=== PATIENT | male | born 1965 | race Caucasian/White ===

== ENCOUNTER 2020-03-18 08:33 | Emergency (ER) | payer OTHER, BC ==
[2020-03-18] MEDS ORDERED: Ibuprofen 600 MG Tab PO ONE (09:02)
--- NOTE | 2020-03-18 09:37 | CR ---
PROCEDURE INFORMATION: Exam: XR Right Tibia and Fibula Exam date and time: 03/18/2020 9:12 AM Age: 54 years old Clinical indication: Injury or trauma; Work related; Initial encounter; Laceration; Lower leg; Right; Without foreign body; Additional info: Tractor part feel on distal tib fib TECHNIQUE: Imaging protocol: XR Right tibia and fibula. Views: 2 views. COMPARISON: No relevant prior studies available. FINDINGS: Bones/joints: Normal. Soft tissues: Normal. No soft tissue foreign body seen. IMPRESSION: No acute findings. Normal right tibia and fibula.
--- NOTE | 2020-03-18 09:51 | EDM.PDOC ---
ED HPI GENERAL MEDICAL PROBLEM - General Chief Complaint: Lower Extremity Injury/Pain Stated Complaint: [id number] SOMETHING FELL ON HIM AT WORK (FEDRAL) Time Seen by Provider: 03/18/20 09:00 Source of Information: Reports: Patient History Limitations: Reports: No Limitations - History of Present Illness INITIAL COMMENTS - FREE TEXT/NARRATIVE: Patient comes emergency department today from work with concerns of an injury to his left lower extremity. This patient was at work just prior to arrival when a piece of 500 pound tractor implement fell on his distal left tib-fib region. He complains of pain to the abrasion area just above the joint of the left ankle. Denies any pain in his ankle or his foot. No pain in his knee. No other injury. No COVID symptoms no COVID exposure. 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: Reports: Acetaminophen Right Leg Pain Score (Numeric/FACES): 10 - Related Data Allergies Allergy/AdvReac Type Severity Reaction Status Date / Time ketoprofen Allergy Nausea Verified 03/18/20 08:49 naproxen [From Aleve] Allergy Nausea and Verified 03/18/20 08:49 Vomiting Home Meds: Home Meds Ibuprofen [Motrin] 200 mg PO Q6H PRN 08/16/13 [History] Lisinopril/Hydrochlorothiazide [Lisinopril-Hctz 20-12.5 mg Tab] 1 each PO DAILY 08/16/13 [History] Multivitamin [Multi Vitamin Daily] 1 each PO DAILY 08/16/13 [History] Acetaminophen [Acetaminophen Extra Strength] 500 mg PO Q8HR PRN 01/19/18 [History] Cholecalciferol (Vitamin D3) [Vitamin D3] 5,000 units PO DAILY 01/19/18 [History] atorvaSTATin [Lipitor] 40 mg PO DAILY 01/19/18 [History] Omeprazole 20 mg PO ACBREAKFAST 03/18/20 [History] Past Medical History HEENT History: Reports: Impaired Vision Cardiovascular History: Reports: Hypertension Gastrointestinal History: Reports: GERD - Infectious Disease History Infectious Disease History: Reports: Chicken Pox, Mumps Social & Family History - Tobacco Use Smoking Status *Q: Current Some Day Smoker Years of Tobacco use: 20 Packs/Tins Daily: 0.5 - Caffeine Use Caffeine Use: Reports: None - Recreational Drug Use Recreational Drug Use: No Review of Systems - Review of Systems Review Of Systems: Comprehensive ROS is negative, except as noted in HPI. ED EXAM, GENERAL - Physical Exam Exam: See Below Exam Limited By: No Limitations General Appearance: Alert, WD/WN, No Apparent Distress Respiratory/Chest: No Respiratory Distress Cardiovascular: Normal Peripheral Pulses Peripheral Pulses: 2+: Radial (L), Radial (R), Posterior Tibial (L), Posterior Tibial (R), Dorsalis Pedis (L), Dorsalis Pedis (R) GI/Abdominal: Normal Bowel Sounds, Soft, Non-Tender Back Exam: Normal Inspection, Full Range of Motion Extremities: Normal Range of Motion, Normal Capillary Refill. No: Normal Inspection (Examination isolated to the right lower extremity. The right knee is unremarkable. There is no crepitus with flexion extension. No laxity within the joint. No pain with varus and valgus stress. No knee effusion. On the very distal anterior aspect of the tibia there is about a [place] size abrasion with a small skin tear. Small amount of bruising. There is some tenderness in this area. There is no overt bony deformity. The ankle is unremarkable as well. He has a negative talar tilt. No tenderness on the medial or lateral malleolus. He has full range of motion. And the foot is unremarkable and nontraumatic.) Course - Vital Signs Last Recorded V/S: Last Vital Signs Temp 98 F 03/18/20 08:44 Pulse 97 03/18/20 08:44 Resp 18 03/18/20 08:44 BP 149/97 H 03/18/20 08:44 Pulse Ox 97 03/18/20 08:44 - Orders/Labs/Meds Meds: Medications Discontinued Medications Generic Name Dose Route Start Last Admin Trade Name Amanda PRN Reason Stop Dose Admin Bacitracin 1 dose 03/18/20 09:52 03/18/20 09:57 Bacitracin Oint 1 Gm TOP 03/18/20 09:53 1 dose ONETIME ONE Administration Ibuprofen 600 mg 03/18/20 09:02 03/18/20 09:07 Motrin PO 03/18/20 09:03 600 mg ONETIME ONE Administration - Radiology Interpretation Free Text/Narrative:: xray tib fib negative for acute fracture per radiology. - Re-Assessments/Exams Free Text/Narrative Re-Assessment/Exam: 03/18/20 10:58 Negative xray. Wound was cleansed and dressed. Departure - Departure Time of Disposition: 09:45 Disposition: Home, Self-Care 01 Clinical Impression: Injury of tibia Qualifiers: Encounter type: initial encounter Laterality: right Qualified Code(s): S89.91XA - Unspecified injury of right lower leg, initial encounter Abrasion, lower leg, anterior Qualifiers: Encounter type: initial encounter Laterality: right Qualified Code(s): S80.811A - Abrasion, right lower leg, initial encounter - Discharge Information Instructions: Abrasion, [id number] Forms: ED Department Discharge Additional Instructions: Tylenol and or Ibuprofen as needed for pain. Cleanse the abrasion twice daily with soap and water. Bacitracin and bandage until healed. Watch for signs of infection. Return to the ED if new or worsening symptoms. Follow up with PCP if any concerns. Sepsis Event Note (ED) - Evaluation Sepsis Screening Result: No Definite Risk - Focused Exam Vital Signs: Vital Signs Temp Pulse Resp BP Pulse Ox 03/18/20 08:44 98 F 97 18 149/97 H 97
[2020-03-18] MEDS ORDERED: Bacitracin Oint 1 GM U/D Packet TOP ONE (09:52)
== END 2020-03-18 10:00 | disposition home or self-care (01) ==
LOC: DL.ED 08:33
DX: S81.811A Laceration without foreign body, right lower leg, initial encounter (principal); I10 Essential (primary) hypertension; F17.210 Nicotine dependence, cigarettes, uncomplicated; Z88.6 Allergy status to analgesic agent; Z79.899 Other long term (current) drug therapy; W22.8XXA Striking against or struck by other objects, initial encounter; Y92.69 Other specified industrial and construction area as the place of occurrence of the external cause; Y99.0 Civilian activity done for income or pay
CPT/HCPCS: 73590; 99283; A9270; 99282